=== PATIENT | female | born 1985 | race Hispanic/Latino ===

== ENCOUNTER 2018-08-04 13:58 | Inpatient (IN) | payer BC ==
[2018-08-04 14:33] VITALS: BMI 28.8
[2018-08-04] MEDS ORDERED: Lactated Ringer's 1,000 ML IV ONE (14:33)
[2018-08-04 14:53] LABS: BASO % 0.3 % (0.0-2.0); EOS # 0.1 K/uL (0.0-0.7); EOS % 0.6 % (0.0-4.0); HEMOGLOBIN 14.4 g/dL (12.0-16.0); LYMPH # 2.7 K/uL (1.0-4.3); LYMPH % 28.5 % (20.0-40.0); MEAN CORPUSCULAR HEMOGLOBIN 32.5 pg (27.0-31.0); MEAN CORPUSCULAR HGB CONC 33.9 g/dL (33.0-37.0); MEAN PLATELET VOLUME 10.5 fl (7.2-11.7); MONO # 0.6 K/uL (0.0-0.8); MONO % 6.7 % (0.0-10.0); NEUT # 6.1 K/uL (1.8-7.0); NEUT % 63.9 % (50.0-75.0); RBC 4.42 Mil/uL (3.80-5.20); RED CELL DISTRIBUTION WIDTH 14.8 % (11.5-14.5); WHITE BLOOD COUNT 9.6 K/uL (4.8-10.8)
[2018-08-04] MEDS ORDERED: Fentanyl/Bupivacaine HCl 250 ML EPI ONE (14:59)
--- NOTE | 2018-08-04 15:03 | OBADHP ---
Datetime: 08/04/2018 14:57 Admit Comment, IP Provider: Patient is a @ 39.5 wks, presents with painful contractions, no leaking, some scant bleeding, +FM. Patient has no antepartum issues, previous no complications, no allergies, only taking vitamins VE = 7/-1 FHR = 150 mod junior, no accels, early decels TOCO - mike q 3-4 mins A/P 1. Admit patient to labor and delivery in labor 2. Start IVF, CEFM and TOCO 3. Pt wants epidural for pain Pelvic Type - PN: Adequate Extremities - PN: Normal Abdomen - PN: Normal Back - PN: Normal Breast - PN: Normal Lungs - PN: Normal Heart - PN: Normal Thyroid - PN: Normal Neurologic - PN: Normal HEENT - PN: Normal General - PN: Normal FHR - Baseline A Provider: 150 Membranes, Provider: Intact Contraction Comments Provider: q 3-4 mins Vital Signs Provider: Reviewed; Within Normal Limits IP Chief Complaint: Uterine contractions NICHD Variability Prov Fetus A: Moderate 6-25bpm NICHD Decel Fetus A IP Provider: Early Dilatation, Provider: 7 Effacement, Provider: 100 Station, Provider: -1 Genitourinary Exam: Normal DTRs - PN: Normal IP Adm Impression: Term, intrauterine IP Admit Plan: Admit to unit
[2018-08-04] MEDS ORDERED: OXYTOCIN/0.9 % NS 20 UNIT/1,000 ML BAG IV SCH (19:00)
[2018-08-04] MEDS ORDERED: Oxytocin 30 UNIT in NS 500 ml 30 UNITS/500 ML BAG IV ONE ×2 (19:00→20:00)
[2018-08-04] MEDS ORDERED: Benzocaine/Menthol SPRAY TOP PRN ×2 (19:31→21:25)
[2018-08-04] MEDS ORDERED: Oxycodone/Acetaminophen 5/325 mg Tab PO PRN ×3 (19:31→21:25)
--- NOTE | 2018-08-04 19:39 | OBDS ---
DELIVERY PERSONNEL Delivery Doctor: Mary Lou Lux MD Manager Child: Jessica Sanchez Anesthesiologist: Denny Jose MD MATERNAL INFORMATION Delivery Anesthesia: Epidural Medications in Delivery: Pitocin Estimated Blood Loss (ml): 100 Placenta Cultured: No Provider Comments: Vaginal delivery over intact perineum in OA presentation, shoulder dystocia occur ed, suprapubic pressure and Tika used to deliver the infant, shoulder and rest of infant deliver ed atraumatically, terminal menocium, cord clamped and cut and infant handed off to waiting pediatric pk, cord blood obtained, placenta delivered spontaneously, fundus firm, EBL = 100mL, 2nd degree lace ration repaired with 2-0 Vicryl rapide, pt otherwise tolerated procedure well LABOR SUMMARY EDC: 08/06/2018 00:00 No. Babies in Womb: 1 LABOR INFORMATION Group B Beta Strep: Negative MEMBRANES Membranes Rupture Method: Artificial Rupture of Membranes: 08/04/2018 15:50 Length of Rupture (hrs): 3.32 Amniotic Fluid Color: Light Meconium Amniotic Fluid Amount: Scant STAGES OF LABOR Stage 3 hrs: 0 Stage 3 min: 2 VAGINAL DELIVERY Episiotomy: None Laceration Extension: Second Degree Laceration Type: Vaginal Laceration Repair: Yes Initial Vag Sponge Count: 15 Final Vag Sponge Count: 15 Sponge Count Correct: Yes Sharps Count Correct: Yes BABY A INFORMATION Infant Delivery Date/Time: 08/04/2018 19:09 Method of Delivery: Vaginal Born in Route : No : N/A Forceps: N/A Vacuum Extraction: N/A Shoulder Dystocia : Yes SHOULDER DYSTOCIA BABY A Delivery Date/Time: 08/04/2018 19:09 PRESENTATION/POSITION BABY A Presentation: Cephalic Cephalic Presentation: Vertex Breech Presentation: N/A PLACENTA INFORMATION BABY A Placenta Delivery Time : 08/04/2018 19:11 Placenta Method of Delivery: Spontaneous Placenta Status: Delivered SCORES BABY A Heart Rate 1 min: >100 bpm Resp Effort 1 min: Slow, Irregular Reflex Irritability 1 min: Cough or Sneeze or Pulls Away Muscle Tone 1 min: Active Motion Color 1 min: Body [place], Extremities Blue SCORE 1 MIN: 8 Heart Rate 5 min: >100 bpm Resp Effort 5 min: Good Cry Reflex Irritability 5 min: Cough or Sneeze or Pulls Away Muscle Tone 5 min: Active Motion Color 5 min: Body [place], Extremities Blue SCORE 5 MIN: 9 INFORMATION BABY A Gestational Age at Delivery: 39.5 Gestational Status: Term Outcome : Liveborn Infant Condition : Stable Sex: Male IDENTIFICATION/MEDS BABY A ID Band Location: Left Leg; Left Arm CORD INFORMATION BABY A No. Cord Vessels: 3 Nuchal Cord : N/A Cord Blood Taken: Yes Suction: Mouth; Nose; Pharynx
--- NOTE | 2018-08-04 19:56 | OBHP ---
Datetime: 08/04/2018 14:57 IP Adm Impression: Term, intrauterine IP Admit Plan: Admit to unit Admit Comment, IP Provider: Patient is a @ 39.5 wks, presents with painful contractions, no leaking, some scant bleeding, +FM. Patient has no antepartum issues, previous no complications, no allergies, only taking vitamins VE = /-1 FHR = 150 mod junior, no accels, early decels TOCO - mike q 3-4 mins A/P 1. Admit patient to labor and delivery in labor 2. Start IVF, CEFM and TOCO 3. Pt wants epidural for pain Pelvic Type - PN: Adequate Extremities - PN: Normal Abdomen - PN: Normal Back - PN: Normal Breast - PN: Normal Lungs - PN: Normal Heart - PN: Normal Thyroid - PN: Normal Neurologic - PN: Normal HEENT - PN: Normal General - PN: Normal FHR - Baseline A Provider: 150 Membranes, Provider: Intact Contraction Comments Provider: q 3-4 mins EGA AdmitDate IP: 39.5 Vital Signs Provider: Reviewed; Within Normal Limits IP Chief Complaint: Uterine contractions NICHD Variability Prov Fetus A: Moderate 6-25bpm NICHD Decel Fetus A IP Provider: Early Dilatation, Provider: 7 Effacement, Provider: 100 Station, Provider: -1 Genitourinary Exam: Normal DTRs - PN: Normal
[2018-08-04] MEDS: Oxycodone/Acetaminophen 5/325 mg Tab PO PRN (23:39)
[2018-08-05] MEDS: Oxycodone/Acetaminophen 5/325 mg Tab PO PRN (05:11)
[2018-08-05 06:42] LABS: BASO # 0.1 K/uL (0.0-0.2); BASO % 0.6 % (0.0-2.0); EOS # 0.2 K/uL (0.0-0.7); EOS % 1.6 % (0.0-4.0); HEMOGLOBIN 13.2 g/dL (12.0-16.0); LYMPH # 2.3 K/uL (1.0-4.3); LYMPH % 21.2 % (20.0-40.0); MEAN CELL VOLUME 95.7 fl (81.0-99.0); MEAN CORPUSCULAR HEMOGLOBIN 32.6 pg (27.0-31.0); MEAN CORPUSCULAR HGB CONC 34.1 g/dL (33.0-37.0); MEAN PLATELET VOLUME 10.7 fl (7.2-11.7); MONO # 0.9 K/uL (0.0-0.8); MONO % 8.3 % (0.0-10.0); NEUT # 7.5 K/uL (1.8-7.0); NEUT % 68.3 % (50.0-75.0); NRBC % 0.1 % (0.0-0.0); RBC 4.06 Mil/uL (3.80-5.20); RED CELL DISTRIBUTION WIDTH 14.7 % (11.5-14.5); WHITE BLOOD COUNT 10.9 K/uL (4.8-10.8)
--- NOTE | 2018-08-05 09:19 | OBPPN ---
Datetime: 08/05/2018 09:14 PP Pain Prov: Within normal limits PP Nausea Prov: Denies PP Flatus Prov: Yes PP Breasts Prov: Not Done PP Heart Prov: Normal PP Lungs Prov: Normal PP Abdomen/Uterus Prov: Normal PP Lochia Prov: Not Done PP Vulva/Perineum Prov: Not Done PP CVA Tenderness Prov: Normal PP Extremities Prov: Normal PP C/S Incision Prov: Not Applicable PP Progress Prov: Normal PP Impression Prov: Normal progression PP Plan Prov: Continue present management PP Progress Note Prov: Patient doing well ambulating tolerating diet pain well controlled Vital signs stable afebrile Uterus firm below the umbilicus Extremities no Homans Post day #1 Ambulation, regular diet, analgesia as needed anticipate discharge in a.m. Vital Signs Provider PP: Reviewed
--- NOTE | 2018-08-06 07:42 | OBDCSUM ---
Datetime: 08/06/2018 07:40 Follow up at, Provider: Dr. Aquino Disch Instr Activity: Normal activity; May Shower Disch Instr Diet: Regular Discharge Instructions, Provider: Routine instructions given Discharge Diagnosis, Provider: Term Delivered Discharge Time: 08/06/2018 07:40 Follow up in weeks, Provider: 5-6 weeks Contraception discussed, Prov: No Disch Activity Restrictions: No exercising; No lifting; No sexual activity; Nothing in vagina - Inte rcourse, tampons, douche
--- NOTE | 2018-08-06 07:42 | OBPPN ---
Datetime: 08/06/2018 07:39 PP Pain Prov: Within normal limits PP Nausea Prov: Denies PP Abdomen/Uterus Prov: Normal PP Lochia Prov: Normal PP Extremities Prov: Normal PP Progress Prov: Normal PP Impression Prov: Normal progression PP Plan Prov: Discharge PP Progress Note Prov: PPD 2 s/p VD, doing well, breast and bottle feeding Rx motrin given Discharge home today Vital Signs Provider PP: Reviewed
[2018-08-06 16:21] VITALS: BP 100/64; PULSE 78; RESP 18; TEMP 97.8; O2SAT 95
== END 2018-08-06 11:48 | disposition home or self-care (01) | DRG 807 ==
LOC: H.EROB2 13:58 → H.L&D 14:33 → H.OB/GYN 21:30
PROVIDERS: ADMIT Obstetrics & Gynecology; ATTEND Obstetrics & Gynecology
PROC: 10E0XZZ Delivery of Products of Conception, External Approach (ICD-10-PCS; principal; 2018-08-04)
PROC: 0KQM0ZZ Repair Perineum Muscle, Open Approach (ICD-10-PCS; 2018-08-04)
PROC: 4A1HXCZ Monitoring of Products of Conception, Cardiac Rate, External Approach (ICD-10-PCS; 2018-08-04)
DX: O66.0 Obstructed labor due to shoulder dystocia (principal); Z37.0 Single live birth; O70.1 Second degree perineal laceration during delivery; Z3A.39 39 weeks gestation of pregnancy